=== PATIENT | male | born 1995 | race Caucasian/White ===

== ENCOUNTER 2020-06-17 19:29 | Outpatient (REF) | payer OTHER, SELFPAY ==
[2020-06-19 15:30] LABS: Chlamydia Result Negative (Negative); GC Result Negative (Negative)
== END 2020-06-17 19:49 ==
LOC: NCHCN 19:29
PROVIDERS: PCP Nurse Practitioner Family; Visit Provider Nurse Practitioner Family
DX: R21 Rash and other nonspecific skin eruption (principal); Z11.3 Encounter for screening for infections with a predominantly sexual mode of transmission
CPT/HCPCS: 87491; 87591

== ENCOUNTER 2021-01-11 12:35 | Outpatient (REF) | payer OTHER, SELFPAY ==
[2021-01-13 18:16] LABS: COVID-19 RT-PCR Result Not Detected ((See Note))
== END 2021-01-11 12:36 | disposition home or self-care (01) ==
LOC: LBN 12:35
PROVIDERS: PCP Nurse Practitioner Family; Visit Provider Nurse Practitioner Family
DX: Z20.822 Contact with and (suspected) exposure to COVID-19 (principal); J06.9 Acute upper respiratory infection, unspecified
CPT/HCPCS: U0003

== ENCOUNTER 2021-01-20 08:04 | Emergency (ER) | payer OTHER, SELFPAY ==
[2021-01-20 08:08] VITALS: BP 143/89; PULSE 84; RESP 16; TEMP 36.3; O2SAT 97
--- NOTE | 2021-01-20 08:15 | DI.RAD_ITS ---
Exam(s) XR HAND RT COMPLETE EXAM: XR HAND RT COMPLETE CLINICAL HISTORY: pain and swelling right dorsal of hand 2nd/3rd. TECHNIQUE: 2D digital imaging was performed. COMPARISON: No exams were available for comparison FINDINGS: There is no evidence of fracture or dislocation. No radiopaque foreign body. No osseous lesions. B one density normal. IMPRESSION: No fracture. No radiopaque foreign body. DATA REPOSITORY: RADIATION DOSE DELIVERED:
--- NOTE | 2021-01-20 11:39 | ED.GENADUL_ITS ---
Discharge Plan Disposition Patient Disposition: HOME Condition: Good Discharge Details Clinical Impression: Tendinitis Primary Care Provider: Nathalie Azevedo ED Provider: Rea Mayberry Home Meds and New Rx's Prescriptions: No Action ibuprofen 600 MG tablet 600 mg PO Q6H PRN (Reason: Pain) Qty: 20 RF: 0 Discharge Instructions Instructions: Tendinitis (ED) Additional Instructions: Ibuprofen 600 mg every 8 hours with food Tylenol 650 mg every 4-6 hours as needed for pain Do not take more than 3 g of Tylenol daily Ice, 10 minutes every couple of hours Keep your splint in place during the day Do not engage in repetitive motion of your hand and stress Follow-up with your doctor in 1 week for reevaluation, I will place you on work restriction until you have follow-up Stand Alone Forms: Work Release Referrals: Nathalie Azevedo [Primary Care Provider] - Discharge Data Discharge Date/Time-TO BE ENTERED AT DEPARTURE: 01/20/21 09:08 Medical Decision Making Patient appears well, no evidence of secondary infection, suspect tendinitis given recurrent use of right hand emergency Placed in splint and PCP recheck in 1 week Work limitations supplied Ibuprofen 4 mg every 8 hours with food Ice rest recommended Return precautions discussed and patient expressed understanding Discharged home in stable condition with stable vitals Medical Records Medical records reviewed: Yes I reviewed the patient's medical records. HPI General Mode of arrival: ambulatory . Date/Time Provider Initiated Documentation: 01/20/21 08:21 . Limitations to Documentation: no limitations . Information obtained by: patient . HPI Narrative: I think it will this 25-year-old male presents with report of swelling and tenderness to his right hand. 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 States pain started on Monday and dramatically worsened when he is working. When he arrived home his pain interferes mildly. He did take ibuprofen yesterday but has only taken it once. He denies prior history of similar symptoms in the past. He denies a specific injury. Patient is otherwise reportedly healthy. She denies any history of IV drug abuse. He denies any fever or chills. He denies alcohol consumption on a regular basis. He describes the pain as sharp and exacerbated with movement. Related Data Home Medications Medication Instructions Recorded Confirmed ibuprofen 600 mg PO Q6H PRN #20 tab 04/01/17 01/20/21 Previous Rx's Medication Instructions Recorded ibuprofen 600 mg PO Q6H PRN #20 tab 04/01/17 Allergies Allergy/AdvReac Type Severity Reaction Status Date / Time Penicillins Allergy Unverified 01/20/21 08:12 General Stated Complaint: Orthopedic DARYA: 4 Review of Systems Narrative: Review of systems obtained x3 and negative aside from where indicated in HPI well PFSH Social History Smoking/Tobacco Use Status: Current every day Tobacco Type: cigarettes Smoking risk assessment performed?: Yes Drug use: Daily Substance use type: marijuana Do you feel safe in your relationship?: Yes Exam Extrem Other: Right hand mild swelling and tenderness on the dorsal aspect overlying the second and third extensor tendons without erythema or evidence of infection Neurovascularly intact, no acute de Quervain's tenderness Course Vital Signs Vital signs: Vital Signs Temperature 36.3 C L 01/20/21 08:08 Pulse 84 01/20/21 08:08 Respiratory Rate 16 01/20/21 08:08 Blood Pressure 143/89 H 01/20/21 08:08 Pulse Oximetry 97 01/20/21 08:08 Temperature 36.3 C L 01/20/21 08:08 Temperature Source Skin 01/20/21 08:08 Pulse 84 01/20/21 08:08 Respiratory Rate 16 01/20/21 08:08 Respiratory Effort Non-Labored 01/20/21 08:08 Blood Pressure 143/89 H 01/20/21 08:08 Blood Pressure Position Sitting 01/20/21 08:08 Pulse Oximetry 97 01/20/21 08:08 Oxygen Delivery Method Room Air 01/20/21 08:08 Oxygen Flow Rate 0 01/20/21 08:08 Pain Level 5 01/20/21 09:11
== END 2021-01-20 09:08 | disposition home or self-care (01) ==
PROVIDERS: Emergency Provider Physician Assistant; PCP Nurse Practitioner Family
DX: M70.841 Other soft tissue disorders related to use, overuse and pressure, right hand (principal); X50.3XXA Overexertion from repetitive movements, initial encounter; Y99.0 Civilian activity done for income or pay
CPT/HCPCS: 29125; 99283; 73130

== ENCOUNTER 2021-10-19 15:11 | Outpatient (CLI) | payer MEDICAID, SELFPAY ==
--- NOTE | 2021-10-19 15:00 | DI.RAD_ITS ---
Exam(s) XR SHOULDER RT COMPLETE 2+V EXAM: XR SHOULDER RT COMPLETE 2+V CLINICAL HISTORY: pain TECHNIQUE: COMPARISON: CR RIGHT SHOULDER COMPLETE from 11/04/2015 FINDINGS: Three views were obtained. Cartilaginous joint space of the glenohumeral joint is well maintained. No bony or soft tissue abnormality seen. IMPRESSION: Negative examination of the shoulder. RADIATION DOSE DELIVERED: Total DLP
== END 2021-10-19 15:12 | disposition home or self-care (01) ==
LOC: DIORS 15:11
PROVIDERS: PCP Nurse Practitioner Family; Referring Provider Nurse Practitioner Family; Visit Provider Physician Assistant Surgical
DX: M25.511 Pain in right shoulder (principal)
CPT/HCPCS: 73030